=== PATIENT | female | born 1940 | race Hispanic/Latino ===

== ENCOUNTER 2016-10-28 16:41 | Emergency (ER) | payer MEDICARE, BC ==
[2016-10-28 16:41] VITALS: BMI 28.8
[2016-10-28] MEDS ORDERED: Absorbable Gelatin Sponge Size 12-7 ONE (17:40)
--- NOTE | 2016-10-28 17:44 | ED PDOC ---
Arrival/HPI - General Chief Complaint: Abnormal Skin Integrity Time Seen by Provider: 10/28/16 17:26 Historian: Patient - History of Present Illness Narrative History of Present Illness (Text): 10/28/16 17:42 76 year old female whose past medical history includes diabetes and CAD with 3 stents on baby Aspirin presents to the emergency department with bleeding to the left middle finger which was nicked by a knife she was using. Patient states she cannot get the bleeding to stop. Denies any other complaints. Time/Duration: Prior to Arrival Symptom Onset: Sudden Symptom Course: Unchanged Associated Symptoms (Text): None Past Medical History - Provider Review Nursing Documentation Reviewed: Yes - Infectious Disease Hx of Infectious Diseases: None - Tetanus Immunization Tetanus Immunization: Unknown - Cardiac Hx Cardiac Disorders: Yes - Pulmonary Hx Respiratory Disorders: No - Neurological Hx Neurological Disorder: No - HEENT Hx HEENT Disorder: No - Renal Hx Renal Disorder: No - Endocrine/Metabolic Hx Endocrine Disorders: No - Hematological/Oncological Hx Blood Disorders: Yes Hx Cancer: Yes (bladder) - Integumentary Hx Dermatological Disorder: No - Musculoskeletal/Rheumatological Hx Musculoskeletal Disorders: No Hx Falls: No - Gastrointestinal Hx Gastrointestinal Disorders: No - Genitourinary/Gynecological Hx Genitourinary Disorders: No - Psychiatric Hx Psychophysiologic Disorder: No Hx Substance Use: No - Surgical History Hx Coronary Stent: Yes Hx Hysterectomy: Yes Other/Comment: bladder - Anesthesia Hx Anesthesia: Yes Hx Anesthesia Reactions: No Hx Malignant Hyperthermia: No Family/Social History - Physician Review Nursing Documentation Reviewed: Yes Family/Social History: Unknown Family HX Smoking Status: Never Smoked Hx Alcohol Use: No Hx Substance Use: No Allergies/Home Meds Allergies/Adverse Reactions: Allergies erythromycin base Allergy (Verified 10/28/16 17:21) NAUSEA metronidazole [From Flagyl] Allergy (Verified 10/28/16 17:21) URTICARIA Penicillins Allergy (Verified 10/28/16 17:21) RASH scopolamine Allergy (Verified 10/28/16 17:21) VERY COMBATIVE Home Medications: Home Meds Medication Instructions Recorded Confirmed Aspirin [Aspirin Chewable] 81 mg PO DAILY 04/27/16 10/28/16 Metoprolol Succinate XL [Toprol XL] 12.5 mg PO DAILY 04/27/16 10/28/16 Ubidecarenone [Coq-10] 200 mg PO DAILY 04/27/16 10/28/16 Famotidine [Pepcid] 20 mg PO BID 07/29/16 10/28/16 Atorvastatin [Lipitor] 20 mg PO HS 10/28/16 10/28/16 Review of Systems - Review of Systems Skin: Other (Left middle finger bleeding) Physical Exam Vital Signs Temp Pulse Resp BP Pulse Ox 10/28/16 17:16 88.6 F L 93 H 19 96/66 L 96 Temperature: Afebrile Blood Pressure: Normal Pulse: Regular Respiratory Rate: Normal Appearance: Positive for: Well-Appearing, Non-Toxic, Comfortable Pain Distress: None Mental Status: Positive for: Alert and Oriented X 3 - Systems Exam Head: Present: Atraumatic, Normocephalic Upper Extremity: Present: Normal ROM, Neurovascularly Intact, Other ( Superficial area bleeding on left middle finger around proximal distal phalanx. ) Medical Decision Making ED Course and Treatment: Impression: 76 year old female whose past medical history includes diabetes and 3 stents on baby Aspirin presents to the emergency department with bleeding to the left middle finger from very superficial wound; no laceration. Progress Notes: 10/28/16 18:02 Gelfoam and dressing placed. Will d/c. - Medication Orders Current Medication Orders: Discontinued Medications Gelatin (Gelfoam Size 12-7) Confirm Administered Dose 1 spg .ROUTE .STK-MED ONE Stop: 10/28/16 17:41 Last Admin: 10/28/16 17:43 Dose: 1 spg - Scribe Statement The provider has reviewed the documentation as recorded by the Scribe Disposition/Present on Arrival - Present on Arrival Any Indicators Present on Arrival: No History of DVT/PE: No History of Uncontrolled Diabetes: No Urinary Catheter: No History of Decub. Ulcer: No History Surgical Site Infection Following: None - Disposition Have Diagnosis and Disposition been Completed?: Yes Diagnosis: Bleeding from finger Disposition: HOME/ ROUTINE Disposition Time: 17:50 Patient Plan: Discharge Patient Problems: Current Active Problems Problem Status Onset Bleeding from finger Acute Condition: GOOD Additional Instructions: Maintain the gelfoam and dressing. Return to the emergency department if any new concerning symptoms. Referrals: Bety Glover MD [Primary Care Provider] - Follow up with primary
[2016-10-28 18:02] VITALS: BP 128/71; PULSE 85; RESP 20; TEMP 97; O2SAT 98
== END 2016-10-28 18:03 | disposition home or self-care (01) ==
LOC: ED 16:41
DX: R58 Hemorrhage, not elsewhere classified (principal); E11.9 Type 2 diabetes mellitus without complications; I25.10 Atherosclerotic heart disease of native coronary artery without angina pectoris; Z95.5 Presence of coronary angioplasty implant and graft